=== PATIENT | male | born 1975 | race Caucasian/White ===

== ENCOUNTER → 2016-05-07 | Outpatient (CLI) | payer BC ==
--- NOTE | 2016-05-07 22:08 | CONS ---
A 40-year-old young male patient complaining of excessive daytime sleepiness. He has been tired and fatigued at all times, very much sleepy and this is affecting his quality of life significantly. His current [place] score is at 15. He has been told to snore and stop breathing by his . He wakes up choking and gasping for air. He has an adjustable mattress and he is sleeping with his head of the bed elevated at 30 degrees and tries to sleep on his side. He goes to bed around 8:30 p.m. and wakes up at 2:30 a.m. in the morning and he works in [employer] and he drives back and forth from [place] to [place]. He does not fall asleep while driving, nor has he been involved in a motor vehicle accident because of feeling drowsy or sleepy. He wants to be further investigated. No restlessness in the lower extremities. No family history of obstructive sleep apnea. No grinding of the teeth. No anxiety. No panic. No depression. PAST MEDICAL HISTORY: Negative. PAST SURGICAL HISTORY: Negative. Drug allergies are not known. Medications are none. SOCIAL HISTORY: Nonsmoker. No history of alcohol. No history of IV drugs. FAMILY HISTORY: Negative for sleep apnea. REVIEW OF SYSTEMS: Twelve-point review of systems was done. Positive for excessive hypersomnia and sleepiness, otherwise negative. BP is 121/75, pulse 66, respirations 16, temperature 98.1, saturation 97% on room air. Weight is 228. Height is 5 foot 10. Neck size is 17 inches. GENERAL APPEARANCE: Calm, comfortable, nonobese. HEENT: Thick neck, 17 inches. No goiter, neck masses. No significant crowding of the posterior pharynx. Mallampati class II. LUNGS: Clear to auscultation. Heart sounds are regular rate and rhythm. Normal S1, S2. ABDOMEN: Soft, nontender. No organomegaly. EXTREMITIES: No edema. No cyanosis or clubbing. IMPRESSION: 1. Excessive hypersomnia, rule out underlying obstructive sleep apnea. 2. [place] score of 17. 3. Loud snoring and witnessed apneas. PLAN: 1. Proceed with a screening polysomnogram. 2. Avoid driving whenever feeling drowsy or sleepy. 3. Implement good sleep hygiene measures. 4. Will follow up on the results of the polysomnogram and make further recommendations accordingly.
== END | disposition home or self-care (01) ==
LOC: SLEEP 16:36
PROVIDERS: ATTEND Internal Medicine Critical Care Medicine
DX: G47.33 Obstructive sleep apnea (adult) (pediatric) (principal); G47.10 Hypersomnia, unspecified
CPT/HCPCS: 99211

== ENCOUNTER → 2016-07-30 | Outpatient (CLI) | payer BC ==
--- NOTE | 2016-07-30 22:51 | PN ---
Jarod Song is a 40-year-old male patient who is being seen in follow-up for a compliancy check regarding his obstructive sleep apnea. The patient was diagnosed having mild KENIA with an AHI of 9 and he was given CPAP therapy at a pressure of 11 cm of water. He is compliant and is using his CPAP every night and his average is around 6.1 hours per night and with leak factor of 7 liters and his AHI while on treatment is down to 0.2. His CPAP use for more than 4 hours, 27 out of 30. However, he is having issues as the patient seems to be a mouth breather and he was given an AirFit P10 nasal pillows and he is leaking from his mouth as he opens up his mouth and he was given a chinstrap. However, this has made uncomfortable and is causing some jaw pain and discomfort. On today's evaluation, we have trialed with various fullface masks. However, in all these instances, the patient continued to have leaks around the face. We tried an AirFit F10 and we tried also Simplus mask in various sizes. The patient is interested in treatment he wants to continue known that he is benefiting from treatment. He is waking up much more alert and awake; however, he is requesting a different mask interface. BP is 110/67, pulse 70, respirations 16, weight is 228, temperature 98.1. [place] score is 14. Saturation 97%. GENERAL APPEARANCE: Calm, comfortable. HEENT: Short neck, crowding posterior pharynx. LUNGS: Diminished; otherwise clear. Heart sounds are regular rate and rhythm. S1, S2. ABDOMEN: Soft, nontender. No megaly. EXTREMITIES: No cyanosis or clubbing. IMPRESSIONS: Obstructive sleep apnea, AHI of 9 symptomatic. The patient underwent successful CPAP therapy. PLAN: The treatment itself is successful; however, the patient will need a different mask interface. He is a mouth breather and he would benefit from a full face mask. Meanwhile, I reviewed the CPAP titration I thought that the pressure of 11 would be an over treatment on this patient. I change him to an auto CPAP setting with a minimum pressure of 5, maximum pressure of 11 and this will allow the patient to utilize lower pressors if needed. He will be asked to come in for a Pap nap during which mask will be chosen, which will be preferably a full face mask and will make the appropriate adjustment and irrigation will be given and the patient may also be given short naps here in the sleep lab to make sure his treatment remains successful. Will continue to follow.
== END | disposition home or self-care (01) ==
LOC: SLEEP 15:56
PROVIDERS: ATTEND Internal Medicine Critical Care Medicine
DX: G47.33 Obstructive sleep apnea (adult) (pediatric) (principal)

== ENCOUNTER → 2020-03-28 | Outpatient (CLI) | payer BC ==
--- NOTE | 2020-03-28 16:26 | PN ---
PROGRESS NOTE Jarod is 44 coming in for followup regarding obstructive sleep apnea. Currently the patient is on CPAP pressure of 10 cm of water. He has been wearing CPAP therapy for years and his AHI at baseline is 9 consistent with mild disease. I checked his compliance data and the patient is averaging around 7.1 hours of CPAP use per night and CPAP use for more than 4 hours is around 70%. Leak is around 8 L/minute and the patient is using an AirTouch full-face mask, large size. His AHI while on treatment is down to 0.3. No significant weight loss or weight gain over the past 4 years and no other new onset comorbidities. REVIEW OF SYSTEMS: Fourteen-point review of system was negative other than only 7-pound weight gain over the past 4 years. PHYSICAL EXAMINATION: VITAL SIGNS: BP is 102/68, pulse 70, respirations 16, temperature 98.2, saturation 95% on room air. Height is 5 feet 10 inches, weight is 235 and BMI 33.7. [place] score is 12. GENERAL APPEARANCE: Calm, comfortable. HEAD: Atraumatic, normocephalic. NECK: Supple. Mallampati class 4. There is no goiter or neck masses. LUNGS: Clear to auscultation. HEART: Sounds are regular rate and rhythm. Normal S1, S2. No S3, no S4. No murmur. ABDOMEN: Soft, nontender. No organomegaly. EXTREMITIES: No edema. No cyanosis or clubbing. IMPRESSION: 1. Obstructive sleep apnea with an AHI of 9, currently on CPAP pressure of 10 cm of water and treatment has been successful. 2. Obesity with a body mass index of 33 with interval of 7 pounds weight gain. 3. Hypersomnia, recovered. 4. Snoring, recovered. PLAN: 1. Encourage weight loss. 2. Renew the patient's CPAP supplies including the AirTouch full-face mask, large size. 3. Implement good sleep hygiene measures. 4. Continue to follow and see me back in a few years time in followup. MMODL / IJN: [id number] /
== END | disposition home or self-care (01) ==
LOC: SLEEP 15:01
PROVIDERS: ATTEND Internal Medicine Critical Care Medicine
DX: G47.33 Obstructive sleep apnea (adult) (pediatric) (principal); E66.9 Obesity, unspecified; Z68.33 Body mass index [BMI] 33.0-33.9, adult; Z99.89 Dependence on other enabling machines and devices

== ENCOUNTER → 2021-03-01 | Outpatient (CLI) | payer BC ==
--- NOTE | 2021-03-01 16:46 | XR ---
EXAMINATION TYPE: XR chest 2V DATE OF EXAM: 03/01/2021 COMPARISON: NONE HISTORY: Cough for 2 to 3 weeks. TECHNIQUE: Frontal and lateral views of the chest are obtained. FINDINGS: There is no focal air space opacity, pleural effusion, or pneumothorax seen. Benign calcif ied nodule or granuloma in the left upper lobe. Low lung volumes. The cardiac silhouette size is upp er limits of normal. The osseous structures are intact. IMPRESSION: No acute pulmonary infiltrate.
--- NOTE | 2021-03-01 16:48 | XR ---
EXAMINATION TYPE: XR foot complete LT DATE OF EXAM: 03/01/2021 CLINICAL HISTORY: Sharp pain were second toe. TECHNIQUE: Frontal, lateral, and oblique images of the left foot are obtained. COMPARISON: None FINDINGS: There is no acute fracture/dislocation evident in the left foot. The Ornelas's toe is prese nt. Small superior calcaneal spur and moderate to large size inferior calcaneal spur. Mild narrowing first metatarsophalangeal joint. Some flexion and varus positioning distal third through fifth toes. Overlying soft tissues are unremarkable. IMPRESSION: As above.
== END | disposition home or self-care (01) ==
LOC: RADXRYALE 15:57
PROVIDERS: ATTEND Physician Assistant
DX: M77.32 Calcaneal spur, left foot (principal); M19.072 Primary osteoarthritis, left ankle and foot; M21.272 Flexion deformity, left ankle and toes; M21.172 Varus deformity, not elsewhere classified, left ankle; R05.9 Cough, unspecified
CPT/HCPCS: 71046

== ENCOUNTER → 2021-06-12 | Outpatient (CLI) | payer OTHER, BC ==
--- NOTE | 2021-06-12 16:30 | XR ---
EXAMINATION TYPE: XR elbow complete RT DATE OF EXAM: 06/12/2021 CLINICAL HISTORY: Pain. TECHNIQUE: Frontal, lateral and oblique images of the right elbow are obtained. COMPARISON: None FINDINGS: There is no acute fracture/dislocation evident in the right elbow. No abnormal fat pad si gns are seen. The overlying soft tissue appears unremarkable. IMPRESSION: Unremarkable study.
== END | disposition home or self-care (01) ==
LOC: RADXRYALE 16:11
PROVIDERS: ATTEND Family Medicine
DX: M25.521 Pain in right elbow (principal)

== ENCOUNTER → 2021-07-02 | Outpatient (CLI) | payer OTHER ==
--- NOTE | 2021-07-03 05:47 | MR ---
EXAMINATION TYPE: MR elbow RT wo con DATE OF EXAM: 07/02/2021 COMPARISON: None HISTORY: Right elbow and forarm pain, swelling, and limited movement since 2020. Multiplanar multiecho imaging of the right elbow without contrast. The triceps tendon is intact. Proximal ulna is intact. Radial head is intact. The collateral ligament s appear intact. The biceps tendon is intact. Brachialis tendon is intact. No evidence of fluid colle ction. No edema. No evidence of a soft tissue mass. Muscle bundles appear intact. No evidence of elbo w joint effusion. IMPRESSION: Negative MR scan of the right elbow.
== END | disposition home or self-care (01) ==
LOC: RADMRIMAIN 20:22
PROVIDERS: ATTEND Family Medicine
DX: M25.521 Pain in right elbow (principal)

== ENCOUNTER → 2023-06-16 | Outpatient (CLI) | payer BC ==
--- NOTE | 2023-06-16 09:37 | CT ---
EXAMINATION TYPE: CT abdomen pelvis wo con CT DLP: 926 mGycm, Automated exposure control for dose reduction was used. DATE OF EXAM: 06/16/2023 8:54 AM COMPARISON: None. CLINICAL INDICATION:Male, 47 years old with history of K92.1 melena; LLQ pain diarrhea, constipation x3 months TECHNIQUE: Axial CT abdomen pelvis wo con;Sagittal and coronal reformats were created on a separate workstation. Contrast used: mL of , (none if empty) Oral contrast used: with Oral Contrast (none if empty) FINDINGS: LOWER CHEST: Unremarkable ABDOMEN LIVER: Diffusely hypoattenuating parenchyma. GALLBLADDER AND BILE DUCTS: Unremarkable. PANCREAS: Unremarkable. SPLEEN: Unremarkable. ADRENAL GLANDS: Unremarkable. KIDNEYS AND URETERS: No evidence of hydronephrosis or renal calculus. The ureters are unremarkable. PELVIS BLADDER: Unremarkable REPRODUCTIVE: Unremarkable. ABDOMEN & PELVIS STOMACH AND BOWEL: Mild Fat stranding changes around the sigmoid colon. There is multiple diverticula in this region. The bowel is decompressed with possible underlying wall thickening not excluded. No evidence of bowel obstruction. The appendix is normal. PERITONEUM/RETROPERITONEUM: No evidence of pneumoperitoneum or free fluid. VASCULATURE: No evidence of aortic aneurysm. MUSCULOSKELETAL: No acute osseous abnormalities LYMPH NODES: No gross evidence for lymphadenopathy. SOFT TISSUE/ABDOMINAL WALL: Right inguinal hernia repair anchors noted. IMPRESSION: 1. Mild colitis possibly mild diverticulitis of the sigmoid colon. Consider short-term follow-up to ensure resolution. 2. Hepatic steatosis.
== END | disposition home or self-care (01) ==
LOC: RADCTMAIN 06:08
PROVIDERS: ATTEND Family Medicine
DX: K52.9 Noninfective gastroenteritis and colitis, unspecified (principal); K76.0 Fatty (change of) liver, not elsewhere classified; K92.1 Melena; R30.0 Dysuria; K59.00 Constipation, unspecified
CPT/HCPCS: 74176

== ENCOUNTER 2024-03-03 11:44 | Day surgery (SDC) | payer BC ==
[2024-02-27 11:04] VITALS: BMI 32.8
[~2024-03-03 11:44] MED LIST: LACTATED RINGERS 1,000 ML IV SCH; LIDOCAINE 1% (10MG/ML) FOR IV START INTRADERMA PRN; ONDANSETRON 4 MG/2 ML VIAL IVP PRN
[2024-03-03 12:35] VITALS: RESP 16; TEMP 97.7
[2024-03-03] MEDS: SODIUM CHLORIDE 0.9% 500 ML 500 ML IV ONE (12:43)
[2024-03-03] MEDS ORDERED: PROPOFOL 10 MG/ML 20 ML VIAL IV ONE (13:16)
--- NOTE | 2024-03-03 13:34 | P.PCN ---
Date of Procedure: 03/03/24 Procedure(s) Performed: BRIEF HISTORY: Patient is a 48-year-old pleasant 48 scheduled for an elective colonoscopy as a part of valuation of intermittent lower abdominal pain and change in bowel habits for the last 6 months duration. PROCEDURE PERFORMED: Colonoscopy with biopsy. PREOPERATIVE DIAGNOSIS: Lower abdominal pain and change in bowel habits. IV sedation per Anesthesia. PROCEDURE: After informed consent was obtained, the patient, was brought into the endoscopy unit. IV sedation was administered by Anesthesia under continuous monitoring. Digital rectal examination was normal. Initially the Olympus CF-160 flexible video colonoscope was then inserted in the rectum, gradually advanced into the cecum without any difficulty. Careful examination was performed as the scope was gradually being withdrawn. Ileocecal valve and the appendiceal orifice were visualized and appeared normal. Prep was excellent. Middle ileum was intubated and 20 cm visualized and appeared normal. Mucosa of the cecum, ascending colon, transverse colon, descending colon, sigmoid colon, and rectum appeared normal. Katter sigmoid diverticulosis seen. Random biopsies were done from the ascending and descending colon rule out microscopic/collagenous colitis. Retroflexion was performed in the rectum and no lesions were seen. The patient tolerated the procedure well. IMPRESSION: Normal-appearing colon from rectum to cecum with no evidence of colorectal neoplasia. Scattered sigmoid diverticulosis. RECOMMENDATIONS: Findings of this examination were discussed with the patient as well as his family. He was advised to follow-up with the biopsy results. With a high-fiber diet and take fiber supplements on a regular basis recommended repeat screening colonoscopy in 10 years..
[2024-03-03 13:53] VITALS: BP 109/61; PULSE 75
== END 2024-03-03 14:16 | disposition home or self-care (01) ==
LOC: ORWHC2ENDO 11:44
PROVIDERS: ATTEND Internal Medicine Gastroenterology
DX: K57.30 Diverticulosis of large intestine without perforation or abscess without bleeding (principal)
CPT/HCPCS: 88305; 45380; J2704